=== PATIENT | male | born 1985 | race African-American/Black ===

== ENCOUNTER 2018-02-01 21:52 | Emergency (ER) | payer BC ==
[2018-02-01 22:12] VITALS: BP 142/85; PULSE 90; RESP 18; TEMP 98.9
--- NOTE | 2018-02-01 22:56 | ED ---
General Adult HPI - General Chief complaint: ENT Stated complaint: sore throat; ear pain; Time Seen by Provider: 02/01/18 22:31 Source: patient, RN notes reviewed Mode of arrival: ambulatory Limitations: no limitations - History of Present Illness Initial comments: 32-year-old male says to the emergency department for a chief complaint of sore throat 7 hours. Patient states it hurts to swallow. Patient states he also feels congested and feels like he is swallowing congestion. Patient also complains of left ear pain. Patient denies difficulty breathing or swallowing. Patient denies cough or shortness of breath. Patient denies fevers or chills at home. Patient has no other complaints at this time including shortness of breath, chest pain, abdominal pain, nausea or vomiting, headache, or visual changes. - Related Data Previous Rx's Medication Instructions Recorded Ibuprofen [Motrin] 600 mg PO Q8HR PRN #20 tab 02/01/18 Loratadine [Claritin] 10 mg PO DAILY #20 tab 02/01/18 guaiFENesin [Mucinex] 1,200 mg PO Q12HR PRN #20 02/01/18 tab.er.12h Allergies Allergy/AdvReac Type Severity Reaction Status Date / Time No Known Allergies Allergy Verified 02/01/18 22:12 Review of Systems ROS Statement: Those systems with pertinent positive or pertinent negative responses have been documented in the HPI. ROS Other: All systems not noted in ROS Statement are negative. Past Medical History Past Medical History: No Reported History History of Any Multi-Drug Resistant Organisms: None Reported Additional Past Surgical History / Comment(s): Cardiac Ablasion 2005- Past Psychological History: No Psychological Hx Reported Smoking Status: Never smoker Past Alcohol Use History: None Reported, Occasional Past Drug Use History: None Reported General Exam Limitations: no limitations General appearance: alert, in no apparent distress Head exam: Present: atraumatic, normocephalic, normal inspection Eye exam: Present: normal appearance, PERRL, EOMI. Absent: scleral icterus, conjunctival injection, periorbital swelling ENT exam: Present: normal exam, normal oropharynx (Uvula midline. Nonerythematous. No tonsillar exudates noted bilaterally.), mucous membranes moist, TM's normal bilaterally (non erythematous TMs. non buldging Tms.), normal external ear exam Neck exam: Present: normal inspection, full ROM. Absent: tenderness, meningismus, lymphadenopathy Respiratory exam: Present: normal lung sounds bilaterally. Absent: respiratory distress, wheezes, rales, rhonchi, stridor Cardiovascular Exam: Present: regular rate, normal rhythm, normal heart sounds. Absent: systolic murmur, diastolic murmur, rubs, gallop, clicks Course Vital Signs 02/01/18 22:08 Temperature 98.9 F Pulse Rate 90 Respiratory 18 Rate Blood Pressure 142/85 O2 Sat by Pulse 98 Oximetry Medical Decision Making - Medical Decision Making 32-year-old male presents to the emergency department for a chief complaint of sore throat, congestion, and left ear pain 7 hours. Patient denies cough or shortness of breath. Patient denies pain or stiffness in the neck. Patient denies difficulty swallowing or breathing. Patient states he feels like mucous is running down the back of his throat. Patient is afebrile in the emergency department. On exam throat is nonerythematous. Uvula midline. No exudates noted bilaterally on tonsils. Patient does have some mucus in the back of the throat. Lungs are clear to auscultation bilaterally. Patient will be treated for nasal congestion with Mucinex. He was take Motrin for throat pain. He will also take Claritin once daily. He will follow up with primary care in 1-2 days. He will return to the emergency department if he has any worsening symptoms or develops fevers. - Lab Data Lab Results 02/01/18 Range/Units 22:12 Group A Strep Rapid Negative (Negative) Disposition Clinical Impression: Congestion of nasal sinus, Pharyngitis Disposition: HOME SELF-CARE Condition: Good Instructions: Sinusitis (ED), Earache (ED) Additional Instructions: Please take Mucinex and Claritin as directed. Please monitor for fever and take Motrin and Tylenol if you develop one. If you have any worsening symptoms return to the emergency department. Otherwise follow-up with primary care in 1- 2 days. Prescriptions: guaiFENesin [Mucinex] 1,200 mg PO Q12HR PRN #20 tab.er.12h PRN Reason: Congestion Ibuprofen [Motrin] 600 mg PO Q8HR PRN #20 tab PRN Reason: Pain Loratadine [Claritin] 10 mg PO DAILY #20 tab Is patient prescribed a controlled substance at d/c from ED?: No Referrals: Brett Stahl MD [Primary Care Provider] - 1-2 days Time of Disposition: 22:53
== END 2018-02-01 22:59 | disposition home or self-care (01) ==
LOC: EC 21:52
DX: J02.9 Acute pharyngitis, unspecified (principal); R09.81 Nasal congestion; H92.02 Otalgia, left ear
CPT/HCPCS: 87081; 87430; 99283

== ENCOUNTER 2022-01-29 21:40 | Emergency (ER) | payer BC ==
[2022-01-29 22:34] VITALS: BP 156/96; PULSE 79; RESP 18; TEMP 98.2
[2022-01-29] MEDS ORDERED: TETRACAINE 0.5% OPHTH (PF) DROPS 4 ML BTL RIGHT EYE STA (22:40)
[2022-01-29] MEDS ORDERED: FLUORESCEIN STRIPS 1 MG STRIP RIGHT EYE ONE (22:40)
[2022-01-29] MEDS ORDERED: PROPARACAINE 0.5% OPHTH DROPS 15 ML BTL RIGHT EYE STA (22:46)
[2022-01-29] MEDS ORDERED: TOBRAMYCIN 0.3% OPHTH DROPS 5 ML BTL RIGHT EYE STA (23:11)
--- NOTE | 2022-01-29 23:14 | ED ---
Eye Problem HPI - General Chief complaint: Eye Problems Stated complaint: Foreign Object In R eye Time Seen by Provider: 01/29/22 22:36 Source: patient Mode of arrival: ambulatory Limitations: no limitations - History of Present Illness Initial comments: Patient is a 36-year-old male presenting with chief complaint of right eye pain. Patient states that earlier he had a piece of cottonwood blown into his right eye. Patient states that he was able to remove it however afterwards his eye still felt irritated. He noticed some swelling of the eye and increased pressure sensation. He also states that earlier his lower lid was swollen. He denies any visual changes or double vision. He denies any foreign body sensation. He denies any light sensitivity. Denies any headache, fever, chills, discharge. Denies any flashes or floaters. - Related Data Previous Rx's Medication Instructions Recorded Ibuprofen [Motrin] 600 mg PO Q8HR PRN #20 tab 02/01/18 Loratadine [Claritin] 10 mg PO DAILY #20 tab 02/01/18 guaiFENesin [Mucinex] 1,200 mg PO Q12HR PRN #20 02/01/18 tab.er.12h Allergies Allergy/AdvReac Type Severity Reaction Status Date / Time No Known Allergies Allergy Verified 01/29/22 22:34 Review of Systems ROS Statement: Those systems with pertinent positive or pertinent negative responses have been documented in the HPI. ROS Other: All systems not noted in ROS Statement are negative. Past Medical History Past Medical History: No Reported History History of Any Multi-Drug Resistant Organisms: None Reported Additional Past Surgical History / Comment(s): Cardiac Ablasion 2005- Past Psychological History: No Psychological Hx Reported Smoking Status: Never smoker Past Alcohol Use History: None Reported, Occasional Past Drug Use History: None Reported General Exam Limitations: no limitations General appearance: alert, in no apparent distress Head exam: Present: atraumatic, normocephalic, normal inspection Eye exam: Present: PERRL, EOMI, other (Chemosis of the lateral portion of the right eye) Expanded Eyelids: Swelling: Right (Notable swelling of the right lower lid) Sclera/Conjunctival: Injection: Right (Conjunctival injection) Neck exam: Present: normal inspection Neurological exam: Present: alert, oriented X3, CN II-XII intact Psychiatric exam: Present: normal affect, normal mood Skin exam: Present: warm, dry, intact, normal color. Absent: rash Course Vital Signs 01/29/22 22:31 Temperature 98.2 F Pulse Rate 79 Respiratory 18 Rate Blood Pressure 156/96 O2 Sat by Pulse 98 Oximetry Medical Decision Making - Medical Decision Making Patient is a 36-year-old male presenting with chief complaint of right eye irritation. Earlier he had a piece of organic material cough and the eye, he was able to remove it but experienced continued irritation and watering. He also noted swelling of the right eye. On examination there is some chemosis of the lateral portion of the globe. There is some mild lower lid swelling. Extraocular motions are intact, no changes in visual acuity. No evidence of foreign body on gross examination with lid eversion. Evidence of corneal abrasion on Wood's lamp exam. Patient is given tobramycin eyedrops and instructed to follow-up with ophthalmology. Follow-up with ophthalmology and PCP this week. Report back to ER with any new or worsening symptoms. Educated on return parameters and alarming symptoms. Answered all questions. Patient conveyed verbal understanding and agreed to the plan. I discussed this case with my attending Dr. Muller. Disposition Clinical Impression: Corneal abrasion Disposition: HOME SELF-CARE Condition: Good Instructions (If sedation given, give patient instructions): Corneal Abrasion (ED), Eye Foreign Body (ED) Additional Instructions: Eye 2 drops of tobramycin eyedrops into affected eye 4 times a day for 5 days. Follow-up with PCP and ophthalmology this week. Report back to ER with any new or worsening symptoms. Is patient prescribed a controlled substance at d/c from ED?: No Referrals: Brett Stahl MD [Primary Care Provider] - 1-2 days Chintan Carl MD [STAFF PHYSICIAN] - 1-2 days Time of Disposition: 23:14
== END 2022-01-29 23:30 | disposition home or self-care (01) ==
LOC: EC 21:40
DX: S05.01XA Injury of conjunctiva and corneal abrasion without foreign body, right eye, initial encounter (principal); W45.8XXA Other foreign body or object entering through skin, initial encounter
CPT/HCPCS: 99283

== ENCOUNTER → 2024-06-18 | Outpatient (CLI) | payer BC ==
--- NOTE | 2024-06-18 18:28 | XR ---
EXAMINATION TYPE: XR knee complete RT DATE OF EXAM: 06/18/2024 COMPARISON: None HISTORY: Posterior lateral pain TECHNIQUE: 3 view right knee FINDINGS: Joint spaces are preserved. No acute fracture or dislocation evident. Moderate joint effusi on may be present. Follow-up studies can be performed 7 acute trauma for continued pain. MRI can be performed for soft t issue evaluation. IMPRESSION: 1. No acute osseous abnormality right knee. 2. Moderate joint effusion [facility], Workstation: [facility], 06/18/2024 6:26 PM
== END | disposition home or self-care (01) ==
LOC: RADXRMAIN 16:38
PROVIDERS: ATTEND Family Medicine
DX: S83.241A Other tear of medial meniscus, current injury, right knee, initial encounter (principal); M25.461 Effusion, right knee

== ENCOUNTER → 2024-06-25 | Outpatient (CLI) | payer BC ==
--- NOTE | 2024-06-25 12:49 | MR ---
EXAMINATION TYPE: MR knee RT wo con DATE OF EXAM: 06/25/2024 COMPARISON: None HISTORY: Right knee pain, S/P injury 2 weeks ago. TECHNIQUE: Multiplanar, multisequence imaging of the right knee is performed without IV contrast. FINDINGS: There is no bone contusion or fracture. There are no osteochondral defects. There is a small joint effusion Is possible mild strain of the cruciate ligaments but there is no evidence of tear of the cruciate li gaments. There is an oblique tear of the posterior horn and body of the lateral meniscus. The medial meniscus is intact. The quadriceps and patellar tendons are normal. IMPRESSION: 1. Tear of the lateral meniscus as described above. 2. Possible mild strain of the cruciate ligaments without tear. 3. small joint effusion. [facility], , 06/25/2024 12:47 PM
== END | disposition home or self-care (01) ==
LOC: RADMRIMAIN 11:38
PROVIDERS: ATTEND Family Medicine
DX: S83.241A Other tear of medial meniscus, current injury, right knee, initial encounter (principal); S83.281A Other tear of lateral meniscus, current injury, right knee, initial encounter; M25.461 Effusion, right knee